=== PATIENT | female | born 1985 | race Caucasian/White ===

== ENCOUNTER → 2017-05-12 15:12 | Outpatient (CLI) | payer OTHER, SELFPAY | PROVIDERS: Family Provider Family Medicine; PCP Family Medicine; Visit Provider Obstetrics & Gynecology Maternal & Fetal Medicine | DX: Z36.82 Encounter for antenatal screening for nuchal translucency (principal) | CPT/HCPCS: 36415 ==

== ENCOUNTER → 2017-05-22 14:20 | Outpatient (CLI) | payer OTHER, SELFPAY ==
--- NOTE | 2017-05-22 14:25 | US_ITS ---
STUDY: SECOND AND THIRD TRIMESTER OBSTETRICAL ULTRASOUND REASON FOR EXAM: Female, 31 years old. Routine survey. LMP: 01/07/2017 TECHNIQUE: Transabdominal PRIOR ULTRASOUND: None. FINDINGS: There is a single intrauterine fetus. The fetus is in a variable presentation. There is demonstrated cardiac activity with a heart rate of 155 bpm. There is a normal amniotic fluid volume. The largest amniotic fluid pocket measures 4.9 cm. The placenta is anterior in location and is not low lying. There are Grade 1 placental changes. The cervix measures 4.9 cm in length. The adnexal regions are not visualized. BIOMETRY: BPD: 4.7: 20 weeks, 2 days HC: 18.1: 20 weeks, 4 days AC: 14.3: 19 weeks, 5 days FL: 8.3: 20 weeks, 3 days CI: FL/BPD: FL/HC: FL/AC: HC/AC: age by current US: 20 weeks, 2 days. ABEL by current US: 10/07/2017 Estimated weight: 329 grams, +/- 48 grams, 95 %. age by prior US: weeks, days. ABEL by prior US: . Age by LMP: 19 weeks, 0 days. ABEL by LMP: 10/16/2017. ANATOMY: Gender: Male Cranium: Normal lateral ventricles. Normal choroid plexus. Normal cerebellum. Normal cisterna magna. Normal face, nose and lips. Chest: Normal 4-chamber heart. Abdomen/Pelvis: Normal diaphragm. Normal stomach. Normal abdominal wall. Normal cord insertion. Normal 3 vessel cord. Normal kidneys. Normal bladder. Spine: Normal cervical spine. Normal thoracic spine. Normal lumbar spine. Normal sacrum. Extremities: Normal bilateral upper extremities. Normal bilateral lower extremities. US/OB Anatomy Scan IMPRESSION: Single live fetus in a variable presentation. No demonstrated anatomic abnormality. Placenta is grade 1 and is not low-lying. Cervix is closed. age by current US: 20 weeks, 2 days. ABEL by current US: 10/07/2017 Estimated weight: 329 grams, +/- 48 grams, 95 %. Electronically Signed: Darron Marin MD at 16:14 EST , Service support ,
== END ==
PROVIDERS: Family Provider Family Medicine; PCP Family Medicine; Visit Provider Obstetrics & Gynecology
DX: Z36.89 Encounter for other specified antenatal screening (principal)
CPT/HCPCS: 76805

== ENCOUNTER → 2017-07-26 13:16 | Outpatient (CLI) | payer OTHER, SELFPAY ==
[2017-07-26 16:52] LABS: Absolute Lymphocyte Count 1.37 X10^3/ul (0.83-4.51); Absolute Neutrophil Count 4.5 X10^3/uL (2.0-7.7); Basophil# 0.01 X10^3/uL; Basophil% 0.2 % (0-1); Eosinophil# 0.05 X10^3/uL; Eosinophils% 0.8 % (0-5); Hematocrit 34.5 % (37-47); Hemoglobin 11.6 g/dl (12.0-15.0); Lymphocyte # 1.37 X10^3/ul (4.0); Lymphocyte % 22.1 % (19-41); Mean Corp Hgb Conc 33.6 g/gl (32-36); Mean Corpuscular Hgb 29.5 pg (27.0-32.0); Mean Corpuscular Volume 87.8 fL (81-99); Mean Platelet Vol. 11.1 fl (6.2-12.0); Monocyte# 0.27 X10^3/uL; Monocyte% 4.3 % (0-10); Neutrophil % 72.4 % (47-70); Platelet Count 196 K/mm3 (150-450); RBC Distribution Width CV 12.7 % (11.6-14.6); RBC Distribution Width SD 39.8 fl (35.1-43.9); Red Blood Count 3.93 M/mm3 (4.2-5.4); White Blood Count 6.2 K/mm3 (4.4-11.0)
[2017-07-26 16:55] LABS: POSITIVE COUNT NO; POSITIVE DIFFERENTIAL NO; POSITIVE MORPHOLOGY NO
[2017-07-26 17:05] LABS: Glucose Challenge Gest 1H 50g 110 mg/dL (70-140)
== END ==
PROVIDERS: Family Provider Family Medicine; PCP Family Medicine; Visit Provider Obstetrics & Gynecology
DX: Z34.81 Encounter for supervision of other normal pregnancy, first trimester (principal)
CPT/HCPCS: 36415; 82950; 85025

== ENCOUNTER → 2017-09-18 18:02 | Outpatient (CLI) | payer OTHER, SELFPAY ==
[2017-09-18 19:32] LABS: Group B Strep DNA By PCR Negative (Negative); Internal Control PASS; Probe Check PASS; Specimen Processing Control PASS
== END ==
PROVIDERS: Family Provider Family Medicine; PCP Family Medicine; Visit Provider Obstetrics & Gynecology
DX: Z34.90 Encounter for supervision of normal pregnancy, unspecified, unspecified trimester (principal)
CPT/HCPCS: 87081; 87653

== ENCOUNTER 2017-10-09 19:43 | Inpatient (IN) | payer OTHER, SELFPAY ==
[2017-10-09] MEDS: Lactated Ringers 1,000 ML 50 ML IV (20:30)
[2017-10-09 20:47] VITALS: BMI 40.6
[2017-10-09 20:47] LABS: Hematocrit 37.4 % (37-47); Hemoglobin 12.5 g/dl (12.0-15.0); Mean Corp Hgb Conc 33.4 g/gl (32-36); Mean Corpuscular Hgb 28.3 pg (27.0-32.0); Mean Corpuscular Volume 84.6 fL (81-99); Mean Platelet Vol. 11.5 fl (6.2-12.0); Platelet Count 200 K/mm3 (150-450); RBC Distribution Width CV 13.3 % (11.6-14.6); RBC Distribution Width SD 40.2 fl (35.1-43.9); Red Blood Count 4.42 M/mm3 (4.2-5.4); White Blood Count 10.9 K/mm3 (4.4-11.0)
--- NOTE | 2017-10-09 20:51 | PCM.HP.OB ---
- Problem List (1) Active labor at term Status: Acute (2) screening encounter Status: Acute Comment: Screening negative (3) Supervision of normal Status: Acute Qualifiers: Comment: PRR ABEL 10/16/17 boy Briseida Amador Michael History Date of Admission: 10/09/17 Final ABEL: 10/16/17 Final ABEL Source: US <20 weeks Gestational age: 39 Weeks and 0 Days History of this : This is a 31 year-old, at 39 weeks gestational age IAL 6 cm dilated. she has had an uncomplicated Medical History: Medical History (Last Reviewed 10/09/17 @ 10:24 by Merle Forbes) anixety tonsilectomy Surgical History: Surgical History (Last Reviewed 10/09/17 @ 10:24 by Merle Forbes) nose Allergies No Known Allergies Allergy (Verified 10/09/17 20:44) Home Medications: Home Medications vitamin,calcium,ncpqblzh-pshr-ldfcz acid tablet 1 tab PO QDAY 02/28/17 Smoking Status: Never smoker Alcohol: None Number of Fetus(es): 1 Heart Tracin-160 mod carmen reactive no decels TOCO Analysis: q2-3 History Past Pregnancies: Past Pregnancies Delivery Date Name GA/Weeks Outcome Route Weight Gender Labor Length Anesthesia Delivery Location Provider FOB Labs: Mom[facility] Labs & Results 10/09/17 10/09/17 20:30 20:30 WBC 10.9 RBC 4.42 Hgb 12.5 Hct 37.4 MCV 84.6 MCH 28.3 MCHC 33.4 RDW 13.3 RDW Differential 40.2 Plt Count 200 MPV 11.5 Blood Type Pending Antibody Screen Pending Social History Smoking Status Never smoker Expected Infant Delivery Method: Spontaneous Vaginal Review of Systems Constitutional: Denies: Fever, Malaise Eyes: Denies: Blurred vision, Vision Change HEENT: Denies: Head Aches, Visual Changes Cardiovascular: Denies: Chest Pain, Palpitations Respiratory: Denies: Cough, Shortness of Breath, Wheezing Gastrointestinal: Reports: Abdominal Pain. Denies: Diarrhea, Nausea, Vomiting Genitourinary: Denies: Dysuria, Hematuria Musculoskeletal: Denies: Joint Pain, Muscle pain Skin: Denies: Lesions, Rash Neurological: Denies: Blurred vision, Focal weakness, Headaches Psychiatric: Denies: Anxiety, Depression Endocrine: Denies: Heat/ Cold Intolerance Hematologic/ Lymphatic: Denies: Easy Bruising, Easy Bleeding Physical Exam General: Alert, Cooperative, No apparent distress HEENT: Atraumatic, Normocephalic. Negative for: Thyromegaly, Lymphadenopathy Cardiovascular: Regular rate Lungs: Normal air movement Abdomen: Soft, Non Tender, Gravid Neurological: Deep Tendon Reflexes 2+/4 and Symmetrical, Neuro grossly intact. Negative for: Clonus LOKIE ENGINEER: Normal external genitalia. Negative for: Vulvar lesions Estimated gestational size: Appropriate for gestational size Presentation: Cephalic Cervix Dilation (cm): 7 Station: -1 Effacement (%): 80 Assessment/Plan All Active Problems (Last Reviewed 10/09/17 @ 10:24 by Merle Forbes) Active labor at term (Acute) screening encounter (Acute) Supervision of normal (Acute) This is a 31 year-old, at 39 weeks gestational age IAL presents IAL exp management arom clear fluid
[2017-10-09 20:52] LABS: Scan Indicated on CBC? Y/N NO
--- NOTE | 2017-10-09 20:54 | HP.PCM_ITS ---
- Problem List (1) Active labor at term Status: Acute (2) screening encounter Status: Acute Comment: Screening negative (3) Supervision of normal Status: Acute Qualifiers: Comment: PRR ABEL 10/16/17 boy Briseida Amador Michael History Date of Admission: 10/09/17 Final ABEL: 10/16/17 Final ABEL Source: US <20 weeks Gestational age: 39 Weeks and 0 Days History of this : This is a 31 year-old, at 39 weeks gestational age IAL 6 cm dilated. she has had an uncomplicated Medical History: Medical History (Last Reviewed 10/09/17 @ 10:24 by Merle Forbes) anixety tonsilectomy Surgical History: Surgical History (Last Reviewed 10/09/17 @ 10:24 by Merle Forbes) nose Allergies No Known Allergies Allergy (Verified 10/09/17 20:44) Home Medications: Home Medications vitamin,calcium,rfeoamvm-oszz-yjxeu acid tablet 1 tab PO QDAY 02/28/17 Smoking Status: Never smoker Alcohol: None Number of Fetus(es): 1 Heart Tracin-160 mod carmen reactive no decels TOCO Analysis: q2-3 History Past Pregnancies: Past Pregnancies Delivery Date Name GA/Weeks Outcome Route Weight Gender Labor Length Anesthesia Delivery Location Provider FOB Labs: Mom[facility] Labs & Results 10/09/17 10/09/17 20:30 20:30 WBC 10.9 RBC 4.42 Hgb 12.5 Hct 37.4 MCV 84.6 MCH 28.3 MCHC 33.4 RDW 13.3 RDW Differential 40.2 Plt Count 200 MPV 11.5 Blood Type Pending Antibody Screen Pending Social History Smoking Status Never smoker Expected Infant Delivery Method: Spontaneous Vaginal Review of Systems Constitutional: Denies: Fever, Malaise Eyes: Denies: Blurred vision, Vision Change HEENT: Denies: Head Aches, Visual Changes Cardiovascular: Denies: Chest Pain, Palpitations Respiratory: Denies: Cough, Shortness of Breath, Wheezing Gastrointestinal: Reports: Abdominal Pain. Denies: Diarrhea, Nausea, Vomiting Genitourinary: Denies: Dysuria, Hematuria Musculoskeletal: Denies: Joint Pain, Muscle pain Skin: Denies: Lesions, Rash Neurological: Denies: Blurred vision, Focal weakness, Headaches Psychiatric: Denies: Anxiety, Depression Endocrine: Denies: Heat/ Cold Intolerance Hematologic/ Lymphatic: Denies: Easy Bruising, Easy Bleeding Physical Exam General: Alert, Cooperative, No apparent distress HEENT: Atraumatic, Normocephalic. Negative for: Thyromegaly, Lymphadenopathy Cardiovascular: Regular rate Lungs: Normal air movement Abdomen: Soft, Non Tender, Gravid Neurological: Deep Tendon Reflexes 2+/4 and Symmetrical, Neuro grossly intact. Negative for: Clonus MANAGEMENT TRAINER: Normal external genitalia. Negative for: Vulvar lesions Estimated gestational size: Appropriate for gestational size Presentation: Cephalic Cervix Dilation (cm): 7 Station: -1 Effacement (%): 80 Assessment/Plan All Active Problems (Last Reviewed 10/09/17 @ 10:24 by Merle Forbes) Active labor at term (Acute) screening encounter (Acute) Supervision of normal (Acute) This is a 31 year-old, at 39 weeks gestational age IAL presents IAL exp management arom clear fluid
[2017-10-09] MEDS: Oxytocin 30 units/NS 500 ml 30 UNITS/500 ML IV.SOLN 334 UNITS IV (21:15)
--- NOTE | 2017-10-09 21:24 | PCM.OB.VAG ---
- Problem List (1) Active labor at term Status: Acute (2) screening encounter Status: Acute Comment: Screening negative (3) Supervision of normal Status: Acute Qualifiers: Comment: PRR ABEL 10/16/17 boy Briseida Amador Michael Vaginal Delivery Maternal Presentation: Active Labor Amniotic Membrane Rupture Type: Artificial Amniotic Fluid Description: Clear Final ABEL: 10/16/17 Gestational age: 39 Weeks and 0 Days Date of Procedure: 10/09/17 Pre-Operative Diagnosis: ial Post-Operative Diagnosis: same Surgery/ Procedure Performed: Spontaneous Vaginal Delivery Type of Anesthesia: Local with 1% lidocaine Description of Procedure: Patient began pushing and delivered the head in the ESTRELLA presentation. The head was delivered atraumatically. The anterior and posterior shoulders delivered without complication followed by the rest of the and the infant was placed on the maternal abdomen. Delayed cord clamping was employed for approximately 60 seconds. Cord was clamped and cut and gentle traction was applied to the cord and the placenta delivered spontaneously immediately following it was noted to be intact with three-vessel cord. The perineum and vagina were inspected and noted to have a small first-degree perineal laceration that was repaired in the usual fashion with 3-0 Vicryl after being anesthetized with 1% lidocaine locally. EBL was 100 cc. Patient and infant tolerated delivery well. Presentation: ESTRELLA Placental Delivery Description: Spontaneous Cord Vessel Description: 3 Vessels Cord Entanglement: None Estimated Blood Loss: 100 A gender: Male Episiotomy Description: None Laceration: Perineal Extension/lac, 1st degree Medications given after delivery: IV Pitocin Complications: None
[2017-10-09] MEDS: Oxytocin 30 units/NS 500 ml 30 UNITS/500 ML IV.SOLN 167 UNITS IV (21:45)
[2017-10-09] MEDS: Naproxen 250 MG Tablet PO (22:18)
[2017-10-09] MEDS: 0.9% Saline Lock 10 ML Syringe IV (22:45)
[2017-10-09 23:20] VITALS: BP 116/59; PULSE 77; RESP 16; TEMP 36.9
[2017-10-10 03:29] VITALS: BP 113/63; PULSE 80; RESP 16; TEMP 37
[2017-10-10] MEDS: Acetaminophen 500 MG Tablet 1000 MG PO ×2 (03:33→12:20)
--- NOTE | 2017-10-10 08:01 | PN.OBGYN_ITS ---
Patient Problems: Active and Suspected Problems (Last Reviewed 10/09/17 @ 10:24 by Merle Forbes ) Active labor at term (Acute) Subjective: No CP, LOF. Doing well. - Physical Exam General: Alert, Oriented x3 Abdomen: Soft, Non Tender, - - FF below U Vital Signs Temp Pulse Resp BP 98.6 F 80 16 113/63 10/10/17 03:29 10/10/17 03:29 10/10/17 03:29 10/10/17 03:29 Oxygen Delivery Method Room Air Weight: 275 lb 9.245 oz Body Mass Index (BMI) 40.6 Intake and Output for Last 24 Hours 10/08/17 10/09/17 10/10/17 23:59 23:59 23:59 Intake Total 300 / 300 Output Total 200 / 200 Balance 300 / 300 -200 / -200 Laboratory Tests Past 24 Hrs 10/09/17 10/09/17 20:30 20:30 WBC 10.9 RBC 4.42 Hgb 12.5 Hct 37.4 MCV 84.6 MCH 28.3 MCHC 33.4 RDW 13.3 RDW Differential 40.2 Plt Count 200 MPV 11.5 Blood Type A POSITIVE Antibody Screen NEGATIVE Medical Necessity - Tobacco Use Smoking Status: Never smoker Assessment/Plan All Active Problems (Last Reviewed 10/09/17 @ 10:24 by Merle Forbes) Active labor at term (Acute) screening encounter (Acute) Supervision of normal (Acute) PPD #1: Routine care, . Pain controlled.
[2017-10-10 09:25] VITALS: BP 109/59; PULSE 67; RESP 18; TEMP 36.4
[2017-10-10] MEDS: Naproxen 250 MG Tablet PO ×2 (09:33→22:31)
[2017-10-10 12:05] VITALS: BP 113/62; PULSE 67; RESP 18; TEMP 36.6
[2017-10-10 21:11] VITALS: BP 110/70; PULSE 74; RESP 18; TEMP 36.4
[2017-10-11 02:00] VITALS: BP 120/63; PULSE 81; RESP 18; TEMP 36.7
--- NOTE | 2017-10-11 07:57 | PN.OBGYN_ITS ---
Patient Problems: Active and Suspected Problems (Last Reviewed 10/09/17 @ 10:24 by Merle Forbes ) Active labor at term (Acute) Subjective: doing well no complaints - Physical Exam General: Alert, Oriented x3 Vital Signs Temp Pulse Resp BP 98.1 F 81 18 120/63 10/11/17 02:00 10/11/17 02:00 10/11/17 02:00 10/11/17 02:00 Oxygen Delivery Method Room Air Weight: 275 lb 9.245 oz Body Mass Index (BMI) 40.6 Intake and Output for Last 24 Hours 10/09/17 10/10/17 10/11/17 23:59 23:59 23:59 Intake Total 300 / 300 Output Total 200 / 200 Balance 300 / 300 -200 / -200 Medical Necessity - Tobacco Use Smoking Status: Never smoker Assessment/Plan All Active Problems (Last Reviewed 10/09/17 @ 10:24 by Merle Forbes) Active labor at term (Acute) screening encounter (Acute) Supervision of normal (Acute) s/p routine care doing well dc home today
--- NOTE | 2017-10-11 07:57 | PCM.DCVAG ---
Discharge Diet: No Restrictions Discharge Activity: Return to Normal Activity, May not drive while taking narcotic pain medications., May Shower May resume sexual activity in: 4-6 weeks Call your doctor if your incision/area has: Continuous Slow Oozing, Sudden Increased Bleeding, Increased Pain/ Swelling, Increased Redness, Foul Smelling Discharge Additional Instructions: If you experience any of the following, contact your healthcare provider. Bleeding that soaks a pad every hour for 2 hours Fever 100.4 or higher Unrelieved incision or abdominal pain Swelling, redness, discharge or bleeding from your incision or episiotomy site Your incision begins to separate Problems urinating (including inability to urinate or burning while urinating). Visual changes Severe headache Flu-like symptoms Pain or redness in one of both of your breasts Pain, warmth, tenderness or swelling in your legs, especially the calf area Frequent nausea and vomiting Symptoms of depression or anxiety If you experience any of the following, call 911 or go to the nearest Emergency Room. Chest pain Problems breathing Seizure activity Partial or complete paralysis of a body part, slurred speech, weakness or drooping of the face, or a sudden inability to walk or hold your balance Allergies/Adverse Reactions: Allergies No Known Allergies Allergy (Verified 10/09/17 20:44) Medications to take at Discharge vitamin,calcium,xwqsdbre-wngy-cjhzw acid tablet 1 tab PO QDAY 02/28/17 Please Follow Up With: Margo Nova MD - [phone] When: Call to make an appointment with your doctor in 6 weeks. If you had elevated Blood pressure or 4th degree laceration you will need to be seen in 2 weeks. Primary Care Physician: Tho Maloney III, MD [Primary Care Provider] - Test Results: Test results from this visit will be discussed in further detail at your follow-up appointment, if applicable.
--- NOTE | 2017-10-11 07:58 | DCINST_ITS ---
Discharge Diet: No Restrictions Discharge Activity: Return to Normal Activity, May not drive while taking narcotic pain medications., May Shower May resume sexual activity in: 4-6 weeks Call your doctor if your incision/area has: Continuous Slow Oozing, Sudden Increased Bleeding, Increased Pain/ Swelling, Increased Redness, Foul Smelling Discharge Additional Instructions: If you experience any of the following, contact your healthcare provider. * Bleeding that soaks a pad every hour for 2 hours * Fever 100.4 or higher * Unrelieved incision or abdominal pain * Swelling, redness, discharge or bleeding from your incision or episiotomy site * Your incision begins to separate * Problems urinating (including inability to urinate or burning while urinating) . * Visual changes * Severe headache * Flu-like symptoms * Pain or redness in one of both of your breasts * Pain, warmth, tenderness or swelling in your legs, especially the calf area * Frequent nausea and vomiting * Symptoms of depression or anxiety If you experience any of the following, call 911 or go to the nearest Emergency Room. * Chest pain * Problems breathing * Seizure activity * Partial or complete paralysis of a body part, slurred speech, weakness or drooping of the face, or a sudden inability to walk or hold your balance Allergies/Adverse Reactions: Allergies No Known Allergies Allergy (Verified 10/09/17 20:44) Medications to take at Discharge vitamin,calcium,uobahfyf-btcl-pftzb acid tablet 1 tab PO QDAY 02/28/17 Please Follow Up With: Margo Nova MD - [phone] When: Call to make an appointment with your doctor in 6 weeks. If you had elevated Blood pressure or 4th degree laceration you will need to be seen in 2 weeks. Primary Care Physician: Tho Maloney III, MD [Primary Care Provider] - Test Results: Test results from this visit will be discussed in further detail at your follow- up appointment, if applicable.
[2017-10-11 08:45] VITALS: BP 117/69; PULSE 79; RESP 16; TEMP 36.7
[2017-10-11 13:07] VITALS: BP 125/72; PULSE 86; RESP 16; TEMP 36.7; O2SAT 98
== END 2017-10-11 13:30 | disposition home or self-care (01) | DRG 775 ==
PROVIDERS: Admitting Provider Obstetrics & Gynecology; Family Provider Family Medicine; PCP Family Medicine; Visit Provider Obstetrics & Gynecology
DX: O70.0 First degree perineal laceration during delivery (principal); Z3A.39 39 weeks gestation of pregnancy; Z37.0 Single live birth
CPT/HCPCS: 59025; 59050; 85027; 86850; 86900; 99218; J7120; A4216; G0378

== ENCOUNTER → 2020-03-09 16:50 | Outpatient (CLI) | payer OTHER, SELFPAY ==
[2020-03-09 14:55] VITALS: BMI 38.5
[2020-03-12 10:07] LABS: HPV APTIMA, High Risk Negative (Negative)
== END ==
PROVIDERS: PCP Family Medicine; Visit Provider Obstetrics & Gynecology
DX: Z12.4 Encounter for screening for malignant neoplasm of cervix (principal)
CPT/HCPCS: 87624; 88175; G0145

== ENCOUNTER → 2020-08-26 16:42 | Outpatient (CLI) | payer OTHER, SELFPAY ==
[2020-08-26 15:16] VITALS: BMI 39.7
[2020-08-26 17:45] LABS: Amphetamine Urine VISTA NEGATIVE (<1000 ng/mL); Barbiturate Urine VISTA NEGATIVE (< 200 ng/mL); Benzodiazepine Urine VISTA NEGATIVE (< 200 ng/mL); Cocaine Urine VISTA NEGATIVE (< 300 ng/mL); Ecstacy Urine VISTA NEGATIVE (< 500 ng/mL); Methadone Urine VISTA NEGATIVE (< 300 ng/mL); PCP Urine VISTA NEGATIVE (< 25 ng/mL); THC Urine VISTA NEGATIVE (< 50 ng/mL); Vista UDS pH Range 5
[2020-08-29 03:06] LABS: Chlamydia By Nucleic Acid AMP Negative (Negative)
[2020-08-29 07:34] LABS: Gonococcus By Nucleic Acid AMP Negative (Negative)
== END ==
PROVIDERS: PCP Family Medicine; Referring Provider Obstetrics & Gynecology; Visit Provider Obstetrics & Gynecology
DX: O09.90 Supervision of high risk pregnancy, unspecified, unspecified trimester (principal); Z3A.00 Weeks of gestation of pregnancy not specified
CPT/HCPCS: 80307; 87086; 87088; 87491; 87591

== ENCOUNTER → 2020-09-25 10:16 | Outpatient (CLI) | payer OTHER, SELFPAY ==
[2020-09-25 09:59] VITALS: BMI 39.7
[2020-09-25 10:56] LABS: Absolute Lymphocyte Count 1.42 X10^3/uL (0.83-4.51); Basophil# 0.03 X10^3/uL; Basophil% 0.5 % (0-1); Eosinophil# 0.05 X10^3/uL; Eosinophils% 0.9 % (0-5); Hemoglobin 13.6 g/dL (12.0-15.0); Lymphocyte # 1.42 X10^3/ul (0.83-4.51); Lymphocyte % 24.3 % (19-41); Mean Corpuscular Hgb 28.3 pg (27.0-32.0); Mean Corpuscular Volume 83.3 fL (81-99); Mean Platelet Vol. 10.7 fl (6.2-12.0); Monocyte# 0.29 X10^3/uL; NRBC Flagged by Analyzer 0 % (0-5); Neutrophil # 4.04 X10^3/uL (2.7-7.7); Platelet Count 232 K/mm3 (150-450); RBC Distribution Width CV 12.2 % (11.6-14.6); White Blood Count 5.9 K/mm3 (4.4-11.0)
[2020-09-25 11:20] LABS: Hemoglobin A1c 4.9 % (3.8-5.6)
[2020-09-25 12:07] LABS: HIV - WCH Non-Reactive (Nonreactive); Hepatitis B Surface Antigen Non-Reactive (Nonreactive); Hepatitis C Antibody Non-Reactive (Nonreactive); Rubella IgG Reactive (Nonreactive); Syphilis Antibodies Non-reactive
== END ==
PROVIDERS: Obstetrics & Gynecology; PCP Family Medicine; Referring Provider Obstetrics & Gynecology; Visit Provider Obstetrics & Gynecology
DX: O09.90 Supervision of high risk pregnancy, unspecified, unspecified trimester (principal); Z3A.00 Weeks of gestation of pregnancy not specified
CPT/HCPCS: 36415; 83036; 85025; 86703; 86762; 86780; 86803; 86850; 86900; 86901; 87340

== ENCOUNTER → 2020-11-25 12:59 | Outpatient (CLI) | payer OTHER, SELFPAY ==
[2020-11-25 14:16] LABS: NATERA MAILED SPECIMEN
== END ==
PROVIDERS: PCP Family Medicine; Referring Provider Obstetrics & Gynecology; Visit Provider Obstetrics & Gynecology
DX: O28.5 Abnormal chromosomal and genetic finding on antenatal screening of mother (principal); Z3A.00 Weeks of gestation of pregnancy not specified
CPT/HCPCS: 36415

== ENCOUNTER → 2021-01-15 11:15 | Outpatient (CLI) | payer OTHER, SELFPAY ==
[2021-01-15 12:17] LABS: Absolute Lymphocyte Count 1.25 X10^3/uL (0.83-4.51); Absolute Neutrophil Count 4.5 X10^3/uL (2.0-7.7); Basophil# 0.03 X10^3/uL; Basophil% 0.5 % (0-1); Eosinophil# 0.07 X10^3/uL; Eosinophils% 1.1 % (0-5); Hemoglobin 11.7 g/dL (12.0-15.0); Lymphocyte # 1.25 X10^3/ul (0.83-4.51); Lymphocyte % 20.5 % (19-41); Mean Corp Hgb Conc 32.5 g/dL (32-36); Mean Corpuscular Hgb 28.4 pg (27.0-32.0); Mean Corpuscular Volume 87.4 fL (81-99); Mean Platelet Vol. 10.7 fl (6.2-12.0); Monocyte# 0.25 X10^3/uL; Monocyte% 4.1 % (0-10); NRBC Flagged by Analyzer 0 % (0-5); Neutrophil # 4.47 X10^3/uL (2.7-7.7); Neutrophil % 73.1 % (47-70); Platelet Count 237 K/mm3 (150-450); RBC Distribution Width CV 12.7 % (11.6-14.6); RBC Distribution Width SD 40.1 fl (35.1-43.9); Red Blood Count 4.12 M/mm3 (4.2-5.4); White Blood Count 6.1 K/mm3 (4.4-11.0)
[2021-01-15 12:44] LABS: Glucose Challenge Gest 1H 50g 121 mg/dL (70-140)
== END ==
PROVIDERS: PCP Family Medicine; Referring Provider Obstetrics & Gynecology; Visit Provider Obstetrics & Gynecology
DX: O09.90 Supervision of high risk pregnancy, unspecified, unspecified trimester (principal); Z3A.00 Weeks of gestation of pregnancy not specified; Z13.1 Encounter for screening for diabetes mellitus
CPT/HCPCS: 36415; 82950; 85025

== ENCOUNTER → 2021-03-12 17:09 | Outpatient (CLI) | payer OTHER, SELFPAY | PROVIDERS: Visit Provider Obstetrics & Gynecology | DX: Z34.93 Encounter for supervision of normal pregnancy, unspecified, third trimester (principal) | CPT/HCPCS: 87081 ==

== ENCOUNTER 2021-04-06 12:25 | Inpatient (IN) | payer OTHER, SELFPAY ==
[2021-04-06] VITALS (40 sets, daily range): BP systolic 78–129; BP diastolic 43–80; PULSE 64–100; RESP 18; TEMP 36.1–37; O2SAT 90–100; BMI 42.0
[2021-04-06] MEDS: Lactated Ringers 1,000 ML 50 ML IV (13:00)
[2021-04-06] MEDS: Lactated Ringers 500 ML 999 ML IV ×2 (13:33→16:15)
[2021-04-06 13:55] LABS: Absolute Lymphocyte Count 1.54 X10^3/uL (0.83-4.51); Absolute Neutrophil Count 4.6 X10^3/uL (2.0-7.7); Basophil# 0.03 X10^3/uL; Basophil% 0.5 % (0-1); Eosinophil# 0.05 X10^3/uL; Eosinophils% 0.8 % (0-5); Hemoglobin 12.4 g/dL (12.0-15.0); Lymphocyte # 1.54 X10^3/ul (0.83-4.51); Lymphocyte % 23.4 % (19-41); Mean Corp Hgb Conc 34.4 g/dL (32-36); Mean Corpuscular Hgb 28.7 pg (27.0-32.0); Mean Corpuscular Volume 83.3 fL (81-99); Mean Platelet Vol. 11.4 fl (6.2-12.0); Monocyte# 0.36 X10^3/uL; Monocyte% 5.5 % (0-10); NRBC Flagged by Analyzer 0 % (0-5); Neutrophil # 4.57 X10^3/uL (2.7-7.7); Neutrophil % 69.5 % (47-70); Platelet Count 227 K/mm3 (150-450); RBC Distribution Width CV 13.2 % (11.6-14.6); RBC Distribution Width SD 39.9 fl (35.1-43.9); Red Blood Count 4.32 M/mm3 (4.2-5.4); White Blood Count 6.6 K/mm3 (4.4-11.0)
--- NOTE | 2021-04-06 14:40 | HP.PCM.OB_ITS ---
HPI - General General Date of Admission: 04/06/21 HPI Narrative PATO ONEAL, is a 35 F who presents IAL 5-6 cm. she has had ctx since this morning no vb lof admits good fm. Maternal Data Information ABEL Calculator Estimated Delivery Date Method Current WG Current Estimate 04/06/21 LMP (Certain) 40w 0d PFSH PFSH Medical History Anxiety Home Medications prenat.vits,fredis,[id number] 1 tab PO DAILY 08/17/20 [History Last Taken 02/24/21] famotidine 20 mg tablet 20 mg PO BID #60 tab 10/23/20 [Rx Last Taken Unknown] Allergy/AdvReac Type Severity Reaction Status Date / Time No Known Allergies Allergy Verified 04/06/21 10:49 Family History Father Cancer Thyroid Mother Hypertension Surgical History History of tonsillectomy S/P nasal surgery Social History adopted: No household members: spouse and children number of children: 3 current occupational status: employed current occupation: [employer] pets and animals: Yes pets and animals: dog(s) Smoking Status: Never smoker second hand exposure: No alcohol intake: never substance use type: does not use caffeine: No what type of physical activity do you participate in: other details: 21 day fix frequency: 3-4 times per week seatbelt use: always do you feel safe at home: Yes additional social history: Micheal- Michael works for the [employer] History 4 Elective abortions Hx Para 3 Spontaneous abortions Hx # Term Pregnancies Ectopic pregnancies Hx # Pregnancies Multiple births # of living children 3 Past Pregnancies Del. Date Name GA/Weeks Outcome Route Bth Weight Gen Labor Lgth Anesthesia Del Locatn Provider FOB 06/28/06 Briseida 41 live - full term 8lb 1 ounz Femal e 24 horus epidural [facility] Dr Darrick Trinidad 02/28/14 Chhaya 38 live - full term 6lbs 15oz Female 30 mins none [facility] Dr. Khoa Rodriguez 10/09/17 Antonio 39 live - full term 8lbs 3oz Male 1 1/ 2 hours local [facility] SHI Rodriguez Delivery Date: 06/28/06 No issues during or delivery. Kirstin Mcgrath Delivery Date: 02/28/14 No issues during or delivery. 2nd degree lac Cynthia Rosenthal Delivery Date: 10/09/17 No issues during or delivery. first degree lac Cynthia Rosenthal Visit Details Expected Delivery Route/Plan Labor Preferences- CB/BF classes: no labor support person: Michael labor intervention preferences: [] pain management options preferred: epidural if time for it cut cord/dad catch: no : yes PP control planned: discussed. discussed possible routes of delivery and associated risks: [] special requests: [] Plans covid status: no infection or vaccine. Counseled flu vaccine: employer tdap vaccine: given rhogam: na LARC form signed: yes Problem list reviewed and updated with the most current plan of care details and appropriate orders placed. Relevant counseling for the gestational age provided. Continue routine care and follow up unless otherwise noted in visit notes/problem list details OB Flowsheet Initial Weight: 269 lb Date -?-?-?-?-?-?-?-?-?-?-?-?- EGA Weight BP Urine Prot -?-?-?-?-?-?-?-?-?-?-?-?- Glucose FHR FuHt Pres Dilation -?-?-?-?-?-?-?-?-?-?-?-?- Effaced St Visit Note 08/17/20 -?-?-?-?-?-?-?-?-?-?-?-?- 6w 6d -?-?-?-?-?-?-?-?-?-?-?-?- -?-?-?-?-?-?-?-?-?-?-?-?- 08/26/20 -?-?-?-?-?-?-?-?-?-?-?-?- 8w 1d 269 lb (+0 oz) 114/70 -?-?-?-?-?-?-?-?-?-?-?-?- 160 -?-?-?-?-?-?--?-?-?-?-?-?- GP - CRL 14mm co nsistent with LMP. 09/25/20 -?-?-?-?-?-?-?-?-?-?-?-?- 12w 3d 262 lb (-7 lb) 112/72 Negative -?-?-?-?-?-?-?-?-?-?-?-?- Negative 160 150 -?-?-?-?-?-?-?-?-?-?-?-?- SM- co nausea, n o vb lof cramping 10/23/20 -?-?-?-?-?-?-?-?-?-?-?-?- 16w 3d 265 lb (-4 lb) 116/68 Negative -?-?-?-?-?-?-?-?-?-?-?-?- Negative 140 -?-?-?-?-?-?-?-?-?-?-?-?- GP - no LOF, VB, DFM, ctx. Pressure bands helping with nausea. Will also add pepcid because having nausea after meals. 11/20/20 -?-?-?-?-?-?-?-?-?-?-?-?- 20w 3d 138/82 -?-?-?-?-?-?-?-?-?-?-?-?- 140 -?-?-?-?-?-?-?-?-?-?-?-?- SM- no vb lof go od fm n oreuglar ctx 12/07/20 -?-?-?-?-?-?-?-?-?-?-?-?- 22w 6d 274 lb (+5 lb) 132/72 Negative -?-?-?-?-?-?-?-?-?-?-?-?- Negative 140 0 -?-?-?-?-?-?-?-?-?-?-?-?- GP - work in for pubic symphysis pain. Cervix closed. Reassurance provided. Referred to chiropractor. Discussed choroid plexus cysts on anatomy scan. 12/18/20 -?-?-?-?-?-?-?-?-?-?-?-?- 24w 3d 277 lb (+8 lb) 120/72 Negative -?-?-?-?-?-?-?-?-?-?-?-?- Negative 145 24 -?-?-?-?-?-?-?-?-?-?-?-?- GP - no LOF, VB, dFM, ctx. Still having pubic symphysis pain - seeing chiropractor. GCT next visit. 01/15/21 -?-?-?-?-?-?-?-?-?-?-?-?- 28w 3d 279 lb 2 oz (+10 lb 2 oz) 110/64 Negative -?-?-?-?-?-?--?-?-?-?-?-?- Negative 140 -?-?-?-?-?-?-?-?-?-?-?-?- SM- physician ca lled away for delivery, heart rate recordered by RN and HPI reviewed, no vb lof good fm no regular ctx pt request to leave and will fu as scheduled. 01/29/21 -?-?-?-?-?-?-?-?-?-?-?-?- 30w 3d 281 lb (+12 lb) 110/74 Negative -?-?--?-?-?-?-?-?-?-?-?-?- Negative 134 30 -?-?-?-?-?-?-?-?-?-?-?-?- 0 -4 JV- no lof , v aginal bleeding, or dec fm. pt is having pelvic pain. seeing chiropractor. PTL precautions discussed 02/10/21 -?-?-?-?-?-?-?-?-?-?-?-?- 32w 1d 282 lb 2 oz (+13 lb 2 oz) 108/72 Negative -?-?-?-?-?-?-?-?-?-?-?-?- Negative 156 32 -?-?-?-?-?-?-?-?-?-?-?-?- MH-NO VB, LOF. N o CTX. Good FM. Tdap, larc. 02/26/21 -?-?-?-?-?-?-?-?-?-?-?-?- 34w 3d 286 lb (+17 lb) 138/76 Negative -?-?-?-?-?-?-?-?-?-?-?-?- Negative 145 34 -?-?-?-?-?-?-?-?-?-?-?-?- SM- no vb lof go od fm no regular ctx 03/12/21 -?-?-?-?-?-?-?-?-?-?-?-?- 36w 3d 287 lb (+18 lb) 110/84 Negative -?-?-?-?-?-?-?-?-?-?-?-?- Negative 145 36 Cephalic -?-?-?-?-?-?-?-?-?-?-?-?- Sm- no vb lof go od fm no regular ctx 03/18/21 -?-?-?-?-?-?-?-?-?-?-?-?- 37w 2d 286 lb 8 oz (+17 lb 8 oz) 110/80 Negative -?-?-?-?-?-?-?-?-?-?-?-?- Negative 147 38 Cephalic 1 -?-?-?-?-?-?-?-?-?-?-?-?- 50 -3 JV- no lof , vaginal bleeding, or dec fm. No complaints other than some low back pain. 03/25/21 -?-?-?-?-?-?-?-?-?-?-?-?- 38w 2d 288 lb (+19 lb) 118/80 Negative -?-?-?-?-?-?-?-?-?-?-?-?- Negative 145 38 Cephalic 3 -?-?-?-?-?-?-?-?-?-?-?-?- 60 -2 SM- no vb lof good fm no regular ctx 04/01/21 -?-?-?-?-?-?-?-?-?-?-?-?- 39w 2d 287 lb 2 oz (+18 lb 2 oz) 112/84 Negative -?-?-?-?-?-?-?-?-?-?-?-?- Negative 140 39 Cephalic 4 -?-?-?-?-?-?-?-?-?-?-?-?- 60 -2 SM- no vb lof good fm nore gular ctx discussed IOL 40 04/06/21 -?-?-?-?-?-?-?-?-?-?-?-?- 40w 0d 284 lb 6.4 oz (+15 lb 6.4 oz) 129/79 127/66 -?-?-?-?-?-?-?-?-?-?-?-?- -?-?-?-?-?-?-?-?-?-?-?-?- NST FHR Rate Baby A Baseline: 130 Variability:: Moderate Accelerations:: 15 x 15 Decelerations:: None NST Reactive:: Yes FHR Category:: Category I Uterine Activity:: q 5-10 ROS Constitutional Constitutional: Reports systems reviewed and no addt'l complaints, except as documented ENT HEENT: Reports systems reviewed and no addt'l complaints, except as documented Cardiovascular Cardiovascular: Reports systems reviewed and no addt'l complaints, except as documented Respiratory/Chest Respiratory/Chest: Reports systems reviewed and no addt'l complaints, except as documented Gastrointestinal Gastrointestinal: Reports systems reviewed and no addt'l complaints, except as documented and nausea; Denies abdominal pain Genitourinary Genitourinary: Reports systems reviewed and no addt'l complaints, except as documented, contractions Details: present and frequency (regular ) and movement Details: present Musculoskeletal Musculoskeletal: Reports systems reviewed and no addt'l complaints, except as documented Integumentary Integumentary: Reports as per HPI Neurologic Neurologic: Reports systems reviewed and no addt'l complaints, except as documented Endocrine Endocrinology: Reports systems reviewed and no addt'l complaints, except as documented Vital Signs Vital Signs Vital Signs: 04/06/21 12:48 04/06/21 14:28 04/06/21 14:33 Temperature 98.6 F Temperature Source Temporal Pulse Rate 66 85 92 Blood Pressure 129/79 H BP Systolic 129 BP Diastolic 79 Pulse Ox 99 100 04/06/21 14:38 04/06/21 14:39 Temperature Temperature Source Pulse Rate 91 Blood Pressure 127/66 H BP Systolic 127 BP Diastolic 66 Pulse Ox 99 Weight Weight: 284 lb 6.4 oz Body Mass Index (BMI) 42.0 Physical Exam Const alert, oriented x3 and healthy appearing Constitutional Narrative: uncomfortable with contractions HEENT normocephalic and moist oral mucous membranes Head and Scalp: atraumatic Neck full ROM, no lymphadenopathy, supple and thyroid normal General: trachea midline Thyroid: thyroid normal Lymph Lymphatic: no lymphadenopathy noted Chest inspection of chest normal Resp normal respiratory effort Cardio regular rate GI normal to inspection, nondistended, normoactive bowel sounds, soft to palpation and non-tender Inspection: gravid external exam normal Bimanual Exam - Vag & Uterus: uterus non-tender Manual OB Exam: estimated gestational size appropriate, presentation cephalic, dilated, effaced and station Extremity normal to inspection General Extremity: Negative for edema Skin no rashes or lesions noted Neuro deep tendon reflexes 2+ bilaterally Motor Exam: strength 5/5 throughout and clonus absent Psych mental status grossly normal Labs Labs Labs: Blood Type A POSITIVE Antibody Screen NEGATIVE Hct 36.0 % (37-47) L Hgb 12.4 g/dL (12.0-15.0) Obstetrics US Syphilis Total Ab Non-reactive Rubella IgG Antibody Reactive (Nonreactive) Hep Bs Antigen Non-Reactive (Nonreactive) Neisseria gonorrhoeae DNA (MARY) Negative (Negative) HIV 1&2 Antibody Non-Reactive (Nonreactive) C.trachomatis DNA (PCR) Negative (Negative) Glucose 1 Hr 50 gm 121 mg/dL (70-140) Group B Strep DNA Negative (Negative) Rhogam given: No Miscellaneous Test Assessment & Plan (1) Choroid plexus cyst of fetus: COMMENT: NIPT- Low risk (2) Vertigo: COMMENT: s/p neurology referral. repeat MRI ordered, approved for epidural, s/p optho consult. 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 Worse when stressed. Unable to predict occurrences. Lasts a few hours up to 2 days. (3) History of precipitous delivery: COMMENT: Last labor 1.5 hours. (4) Supervision of high risk , antepartum: COMMENT: PRR ABEL 04/06/20 girl Dot PC:Tg Goins Grady Spouse:Michael (5) : QUALIFIERS: Weeks of gestation: 39 weeks Qualified Code(s): Z3A.39 - 39 weeks gestation of COMMENT: low risk NIPT. carrier and ntd declined. anatomy reviewed. having a girl - Aida; GBS NEG (6) Anxiety: COMMENT: no meds (7) Active labor at term: COMMENT: epi prn arom prn admit exp management
[2021-04-06] MEDS: fentaNYL-bupivacaine (epidural) 100 ML BAG EPIDURAL (16:31)
[2021-04-06] MEDS: Oxytocin 30 units/NS 500 ml 30 UNITS/500 ML IV.SOLN 334 UNITS IV (16:45)
--- NOTE | 2021-04-06 17:22 | OP.PCM_ITS ---
Maternal Data Information ABEL Calculator Estimated Delivery Date Method Current Current Estimate 04/06/21 LMP (Certain) 40w 0d Vaginal Delivery Operative Information Pre-Operative Diagnosis: IAL Post-Operative Diagnosis: same Surgery / Procedure Performed: Spontaneous Vaginal Delivery Type of Anesthesia: Epidural Special Medications: none Estimated Blood Loss: 100 Fluids Replaced: crystalloid Findings Description of Procedure: Patient began pushing and delivered the head in the ELISABETH presentation. The head was delivered atraumatically and a loose nuchal cord ?1 was identified and the infant delivered through without complication. The anterior and posterior shoulders delivered without complication followed by the rest of the infant and the was placed on the maternal abdomen. Delayed cord clamping was employed for approximately 60 seconds. Cord was clamped and cut and gentle traction was applied to the cord and the placenta delivered spontaneously immediately following it was noted to be intact with three-vessel cord. The perineum and vagina were inspected and noted to have no laceration. EBL was 100 cc. Patient and tolerated delivery well. Presentation: ELISABETH Amniotic Membrane Rupture Type: Artificial Amniotic Fluid Description: Clear Placental Delivery Description: Spontaneous Placenta Disposition: [facility] Cord Vessel Description: 3 Vessels Cord Entanglement: None Delayed Cord Clamping: Yes Post Vaginal Delivery Medications Given After Delivery: IV Pitocin Episiotomy Description: None Laceration: None Complication Complications: None Procedures Urinary/Genital [id number]: [id number] Vaginal Delivery [facility]
--- NOTE | 2021-04-06 17:22 | PCM.DC ---
Discharge Instructions Diet Discharge Diet: No restrictions Activity Discharge Activity: Return to Normal Activity, May Not Drive (while taking narcotic pain medications.) and May Shower May resume sexual activity in: 4-6 weeks Dressing / Incision Call your doctor if your incision/area has: Continuous Slow Oozing, Sudden Increased Bleeding, Increased Pain/ Swelling, Increased Redness and Foul Smelling Discharge Follow Up Care Please Follow Up With: Margo Nova MD When: Call [phone] to make an appointment with your doctor in 6 weeks. If you had elevated blood pressure or 4th degree laceration, you will need to be seen in 2 weeks. Test Results: Test results from this visit will be discussed in further detail at your follow-up appointment, if applicable. Discharge Plan Admission Admit Date/Time: 04/06/21 12:25 Attending Provider: Margo Nova Primary Care Provider: Care Physician,Kimmy Primary Discharge Orders/Prescriptions Prescriptions: No Action prenat.vits,fredis,[id number] Tablet 1 tab PO DAILY RF: 0 famotidine [Pepcid] 20 mg tablet 20 mg PO BID Qty: 60 RF: 4
[2021-04-07] MEDS: Acetaminophen 500 MG Tablet 1000 MG PO ×2 (00:22→12:18)
[2021-04-07 00:26] VITALS: BP 119/72; PULSE 67; RESP 18; TEMP 36.6
[2021-04-07 04:43] VITALS: BP 108/62; PULSE 73; RESP 18; TEMP 36.9
[2021-04-07] MEDS: Naproxen 500 MG Tablet PO ×2 (06:38→15:10)
--- NOTE | 2021-04-07 07:45 | PN.OBGYN_ITS ---
Subjective Subjective Patient doing well without complaints. Tolerating PO. Ambulating and voiding without difficulty. Feeding well. Denies chest pain, shortness of breath, calf pain/swelling, fevers, chills, lightheadedness. Objective Data Objective Data Vital Signs: Vital Signs Temp Pulse Resp BP Pulse Ox 98.5 F 73 18 108/62 90 04/07/21 04:43 04/07/21 04:43 04/07/21 04:43 04/07/21 04:43 04/06/21 18:08 Oxygen Delivery Method Room Air Weight: 284 lb 6.4 oz Body Mass Index (BMI) 42.0 Intake & Output: Intake and Output for Last 24 Hours 04/05/21 04/06/21 04/07/21 23:59 23:59 23:59 Intake Total 2227.50 / 2227.50 Output Total 500 / 500 450 / 450 Balance 1727.50 / 1727.50 -450 / -450 Lab / Micro Data Result Diagrams: 04/06/21 13:45 Labs: Laboratory Results - last 24 hr 04/06/21 13:00: WBC Cancelled, Corrected WBC Cancelled, RBC Cancelled, Hgb Cancelled, Hct Cancelled, MCV Cancelled, MCH Cancelled, MCHC Cancelled, RDW Std Deviation Cancelled, RDW Coeff of Mikaela Cancelled, Plt Count Cancelled, MPV Cancelled, Immature Gran % (Auto) Cancelled, Neut % (Auto) Cancelled, Lymph % (Auto) Cancelled, Ashley % (Auto) Cancelled, Eos % (Auto) Cancelled, Baso % (Auto) Cancelled, Absolute Neuts (auto) Cancelled, Absolute Lymphs (auto) Cancelled, Total Counted Cancelled, Neutrophils % (Manual) Cancelled, Band Neutrophils % Cancelled, Lymphocytes % (Manual) Cancelled, Monocytes % (Manual) Cancelled, Eosinophils % (Manual) Cancelled, Basophils % (Manual) Cancelled, Metamyelocytes % Cancelled, Myelocytes % Cancelled, Promyelocytes % Cancelled, Blast Cells % Cancelled, Plasma Cell % (Manual) Cancelled, Other Cells % Cancelled, Nucleated RBC % Cancelled, Nucleated RBCs/100 WBC Cancelled, Differential Comment Cancelled, Diff Path Review Cancelled, Hypersegmented Neuts Cancelled, Atypical Lymphocytes Cancelled, Reactive Lymphocytes Cancelled, Smudge Cells Cancelled, Toxic Granulation Cancelled, Toxic Vacuolation Cancelled, Dohle Bodies Cancelled, Susan Rods Cancelled, Platelet Estimate Cancelled, Plt Morphology Comment Cancelled, RBC Morphology Cancelled, Polychromasia Cancelled, Hypochromasia Cancelled, Poikilocytosis Cancelled, Basophilic Stippling Cancelle d, Anisocytosis Cancelled, Microcytosis Cancelled, Macrocytosis Cancelled, Spherocytes Cancelled, Sickle Cells Cancelled, Target Cells Cancelled, Tear Drop Cells Cancelled, Ovalocytes Cancelled, Stomatocytes Cancelled, [place] Bodies Cancelled, [place] Cells Cancelled, Bite Cells Cancelled, Crenated Cell Cancelled, Acanthocytes (Spur) Cancelled, Rouleaux Cancelled, Schistocytes Cancelled 04/06/21 13:00: Blood Type A POSITIVE, Antibody Screen NEGATIVE 04/06/21 13:45: WBC 6.6, RBC 4.32, Hgb 12.4, Hct 36.0 L, MCV 83.3, MCH 28.7, MCHC 34.4, RDW Std Deviation 39.9, RDW Coeff of Mikaela 13.2, Plt Count 227, MPV 11.4, Immature Gran % (Auto) 0.300, Neut % (Auto) 69.5, Lymph % (Auto) 23.4, Ashley % (Auto) 5.5, Eos % (Auto) 0.8, Baso % (Auto) 0.5, Absolute Neuts (auto) 4.6, Absolute Lymphs (auto) 1.54, Nucleated RBC % 0 Micro: Microbiology 04/06/21 13:20 Nasal Secretion SARS-CoV-2 Antigen (Rapid) - Final Physical Exam Const alert and oriented x3 HEENT normocephalic Eyes PERRL Neck full ROM Resp normal respiratory effort GI soft to palpation GI Narrative: FF below U Assessment & Plan (1) Normal vaginal delivery: COMMENT: 04/06/21 Dot URRUTIA PLAN: s/p PPD # 1 1. routine post delivery care 2. breast feeding- support given 3. rh positive 4. rubella immune 5. probable home today
--- NOTE | 2021-04-07 07:47 | PCM.DC ---
Discharge Instructions Diet Discharge Diet: No restrictions Activity May resume sexual activity in: 4-6 weeks Dressing / Incision Call your doctor if your incision/area has: Continuous Slow Oozing, Sudden Increased Bleeding, Increased Pain/ Swelling, Increased Redness and Foul Smelling Discharge Follow Up Care Please Follow Up With: Margo Nova MD Test Results: Test results from this visit will be discussed in further detail at your follow-up appointment, if applicable. Discharge Plan Admission Admit Date/Time: 04/06/21 12:25 Attending Provider: Margo Nova Primary Care Provider: Care Physician,Kimmy Primary Discharge Orders/Prescriptions Prescriptions: No Action prenat.vits,fredis,[id number] Tablet 1 tab PO DAILY RF: 0 famotidine [Pepcid] 20 mg tablet 20 mg PO BID Qty: 60 RF: 4
[2021-04-07 09:04] VITALS: BP 112/73; PULSE 71; RESP 16; TEMP 36.1
[2021-04-07 12:15] VITALS: BP 108/72; PULSE 71; RESP 14; TEMP 36.6
[2021-04-07 17:26] VITALS: BP 112/77; PULSE 64; RESP 15; TEMP 36.2
== END 2021-04-07 18:50 | disposition home or self-care (01) | DRG 807 ==
LOC: WPOUT 12:27 → WP 12:27
PROVIDERS: Admitting Provider Obstetrics & Gynecology; Referring Provider Obstetrics & Gynecology; Visit Provider Obstetrics & Gynecology
DX: O35.0XX0 Maternal care for (suspected) central nervous system malformation in fetus, not applicable or unspecified (principal); Z37.0 Single live birth; O99.344 Other mental disorders complicating childbirth; F41.9 Anxiety disorder, unspecified; O99.892 Other specified diseases and conditions complicating childbirth; R42 Dizziness and giddiness; O69.81X0 Labor and delivery complicated by cord around neck, without compression, not applicable or unspecified; Z3A.39 39 weeks gestation of pregnancy; Z23 Encounter for immunization
CPT/HCPCS: 59025; 59050; 85025; 86850; 86900; 86901; 87426; J7120; 90686

== ENCOUNTER 2021-06-06 15:18 | Emergency (ER) | payer OTHER, SELFPAY ==
--- NOTE | 2021-06-06 15:19 | ED.RN ---
pt has 8 weeks old in car with family that my need breast feed at some point. this rn explained that we are trying to keep children out of the er if not being seen for there safety.
[2021-06-06 15:21] VITALS: BP 131/80; PULSE 77; RESP 14; TEMP 35.1; O2SAT 99; BMI 41.8
--- NOTE | 2021-06-06 15:43 | EDS_ITS ---
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 Patient has had a varicose vein in that leg since 2014 that intermittently causes her some trouble. Patient was seen by outpatient physician on Monday which is 2 days ago and was told he could not get an ultrasound until Monday which is tomorrow. Patient was advised to come to the emergency department if increased pain or redness or swelling. Patient denies any chest pain or shortness of breath. She has no history of PE or DVT. Patient currently nursing a baby that she delivered in March. No blood clotting disorders known. [facility] Medical History Anxiety Home Medications etonogestrel 0.12 mg-ethinyl estradiol 0.015 mg/24 hr vaginal ring 1 vag ring VAGINAL ONCE 28 Days #1 ea 05/18/21 [Rx Last Taken Unknown] Allergy/AdvReac Type Severity Reaction Status Date / Time No Known Allergies Allergy Verified 06/06/21 15:19 Family History Father Cancer Thyroid Mother Hypertension Surgical History History of tonsillectomy S/P nasal surgery Social History adopted: No household members: spouse and children number of children: 3 current occupational status: employed current occupation: [employer] pets and animals: Yes pets and animals: dog(s) Smoking Status: Never smoker second hand exposure: No alcohol intake: never substance use type: does not use caffeine: No what type of physical activity do you participate in: other details: 21 day fix frequency: 3-4 times per week seatbelt use: always do you feel safe at home: Yes additional social history: - Michael works for the [employer] [facility] Constitutional Constitutional ED: Reports systems reviewed and no addt'l complaints, except as documented; Denies body ache(s), change in weight or chills Eyes Eyes: Denies acute decrease in peripheral vision, change in vision, double vision or loss of vision ENT ENT ED: Reports none; Denies ear pain, lip swelling, loss taste/smell, neck pain, otalgia or sore throat Cardiovascular Cardiovascular: Reports none; Denies abdominal pain, chest pain with activity, leg edema, lightheadedness, palpitations, rapid heart rate or syncope Respiratory/Chest Respiratory/Chest: Reports none; Denies change in mental status, dry cough, dyspnea, hemoptysis, shortness of breath at rest or shortness of breath with exertion Gastrointestinal Gastrointestinal: Reports none; Denies abdominal pain, change in stool character, diarrhea, hematemesis, hematochezia, melena, rectal bleeding or vomiting Genitourinary Genitourinary ED: Reports none; Denies abdominal discomfort, anuria, dysuria, genital pain or polyuria Musculoskeletal Musculoskeletal: Reports none and other Details: Right leg pain and swelling ; Denies arthralgias, back pain, difficulty walking, extremity pain, muscle weakness or myalgias Integumentary Reports none; Denies abscess or rash Neurologic Neurologic: Reports none; Denies abnormal gait, confusion, focal weakness, frequent falls, headache(s), loss of vision, numbness, paresthesias, radicular pain, vertigo or weakness Psychiatric Psychiatric: Reports systems reviewed and no addt'l complaints, except as documented and none; Denies behavioral changes, confusion, difficulty concentrating, hallucinations, suicidal ideation, tactile hallucinations or visual hallucinations Endocrine Endocrinology: Denies none, cold intolerance, excessive sweating, fatigue or heat intolerance Hematologic/Lymphatic Hematologic/Lymphatic: Reports none; Denies anemia, easy bleeding or easy bruising Allergic/Immunologic Allergic/Immunologic ED: Denies as per HPI, none, lip swelling, mouth swelling, throat swelling, tongue swelling or hives EXAM Physical Exam Const Vital Signs: 06/06/21 15:21 Temperature 95.1 F L Temperature Source Temporal Pulse Rate 77 Respiratory Rate 14 Blood Pressure 131/80 H Blood Pressure Mean 97 Pulse Ox 99 Oxygen Delivery Method Room Air Positive well nourished and well developed General Appearance ED: well developed and NAD HEENT Reports TM's clear and moist mucous membranes normocephalic and atraumatic; Negative for trauma or tenderness Tympanic Membrane ED: Yes TM's clear Eyes PERRL and EOMs intact bilaterally General Eye ED: Negative for pale conjunctiva or scleral icterus Neck no lymphadenopathy, supple and no JVD General: Negative for tenderness Chest Wall inspection of chest normal and palpation of chest normal Chest: Negative for tenderness Resp normal respiratory effort and clear to auscultation bilaterally Effort and Inspection: Negative for respiratory distress or pain with movement Auscultation: Negative for rhonchi, wheezes or diminished lung sounds Cardio regular rate, regular rhythm, S1 normal heart sound, S2 normal heart sound and no murmurs Peripheral Pulses: pulses 2+ throughout GI normal to inspection, nondistended, normoactive bowel sounds, soft to palpation, non-tender, non-distended and no masses Back/Spine no CVA tenderness and no thoracic nor lumbar tenderness Extremity normal to inspection Extremity Narrative: Evaluation of the right lower extremity does reveal an area of dilated superficial veins to the medial aspect of the distal right thigh. Patient I suspect likely has a thrombophlebitis that is superficial. She is neurovascular intact distally. Normal pulses. Normal cap refill. General Extremety ED: Negative for edema General Extremity: Negative for edema Neuro oriented x3, CN's II-XII intact bilaterally, no sensory deficits noted and gait normal Sensorium / Orientation: awake, alert, oriented to person, oriented to place and oriented to time Motor Exam: strength 5/5 throughout and strength abnormal Psych mental status grossly normal Skin no rashes or lesions noted and no wounds MDM MDM MDM Narrative Medical decision making narrative: I do not have ultrasound available to rule out DVT today. I will write her an order to come back tomorrow morning to have a venous Doppler. I will treat her with Lovenox 1 dose and told her to pump and discard the milk for the next 48 hours. Discharge Plan Triage Chief Complaint: Lower Extremity Injury ED Provider: Mallorie Abernathy Dx/Rx/DC Orders Clinical Impression: Superficial thrombophlebitis Instructions: ED Thrombophlebitis, Superficial Prescriptions: No Action etonogestrel-ethinyl estradiol [NuvaRing] 0.12-0.015 mg/24 hr ring 1 vag ring vaginal ONCE 28 Days Qty: 1 RF: 12 Other Ambulatory Orders: Venous Duplex US, Unilateral (Routine) Facility: [facility] - Location: [facility] Ordered By: Dr. Mallorie Abernathy ON-CALL NEEDED: Notify [facility] - Doppler Study Ordered (Stat) Location: None Selected Ordered By: Dr. Mallorie Abernathy Primary Care Provider: Care Physician,No Primary Referrals: Care Physician,No Primary [Primary Care Provider] - Disposition Disposition: Home, Self Care
[2021-06-06] MEDS: Enoxaparin 120 MG/0.8 ML Syringe SC (16:06)
== END 2021-06-06 16:09 | disposition home or self-care (01) ==
LOC: ED 15:57
PROVIDERS: Emergency Provider Emergency Medicine; PCP Family Medicine; Visit Provider Emergency Medicine
DX: I80.01 Phlebitis and thrombophlebitis of superficial vessels of right lower extremity (principal); I83.91 Asymptomatic varicose veins of right lower extremity
CPT/HCPCS: 96374; 99282

== ENCOUNTER 2021-06-07 15:06 | Outpatient (CLI) | payer OTHER, SELFPAY ==
--- NOTE | 2021-06-07 15:09 | VDLE_ITS ---
Reason For Study: Swelling RIGHT CFV is compressible, spontaneous, phasic, competent and demonstrates normal augmentation. FV is compressible, spontaneous, phasic, competent and demonstrates normal augmentation. POP V is compressible, spontaneous, phasic, competent and demonstrates normal augmentation. T/P Trunk is compressible. PTV is compressible. RT PerV is compressible. Superficial vein thrombosis is noted in the rigth GSV from distal thigh-knee and mid calf. Thrombus filled varicose veins noted in the right distal thigh to mid calf. Procedure This is a venous duplex using B-mode, color flow and spectral Doppler. Exam performed in department. A preliminary report was called and/or faxed to [facility] RN, and [place]. VL/Venous Duplex US, Unilateral Interpretation Summary Deep veins of the right lower extremity are patent and compressible segmentally . There is no evidence of right lower extremity deep vein thrombosis. Valvular competence homar ears intact within the proximal deep venous system on the right . Acute superficial thrombophlebit is is noted in the right great saphenous vein from the distal thigh to the mid-calf, and involving superficial varicosities from the distal right thigh to the right mid-calf. Ordering Physician: Mallorie Abernathy Referring Physician: Gustavo Adrian Performed By: Nury Cardona RVT
== END 2021-06-07 23:59 | disposition home or self-care (01) ==
LOC: CVS 15:07
PROVIDERS: PCP Family Medicine; Referring Provider Emergency Medicine; Visit Provider Emergency Medicine
DX: M79.89 Other specified soft tissue disorders (principal)
CPT/HCPCS: 93971